=== PATIENT | female | born 1995 | race Caucasian/White ===

== ENCOUNTER 2022-01-03 06:51 | Day surgery (SDC) | payer BC ==
[2022-01-02 14:33] LABS: BASOPHILS % (AUTO) 0.8 % (0.0-5.0); EOSINOPHILS % (AUTO) 4.3 % (0.0-8.0); LYMPHOCYTES % (AUTO) 28.2 % (21.0-51.0); MEAN CORPUSCULAR HEMOGLOBIN 31.9 pg (27.0-33.0); MEAN CORPUSCULAR HGB CONC 34.5 g/dL (32.0-36.0); MEAN CORPUSCULAR VOLUME 92.4 fL (79-99); MONOCYTES % (AUTO) 7.7 % (3.0-13.0); NEUTROPHILS % (AUTO) 58.7 % (40.0-77.0); PLATELET COUNT (AUTO) 211 K/uL (130-400); RED BLOOD CELL COUNT(AUTO) 4.76 MIL/uL (4.00-5.50); RED CELL DISTRIBUTION WIDTH 12.5 % (11.0-15.5); WHITE BLOOD COUNT (AUTO) 7.5 K/uL (4.8-10.8)
[2022-01-02 14:40] VITALS: BP 114/72
[~2022-01-03] VITALS: Ht 172.7 cm; Wt 60.0 kg
[~2022-01-03 06:51] MED LIST: CEFAZOLIN SODIUM 2 GM VIAL IV SCH
[2022-01-03] MEDS ORDERED: LACTATED RINGERS 1000ML 1,000 ML IV ONE (07:08)
[2022-01-03] MEDS ORDERED: CEFAZOLIN SODIUM 1 GM VIAL ONE (07:08)
[2022-01-03 07:15] VITALS: BP 135/82
[2022-01-03] MEDS ORDERED: POLY10DR3 OD (07:23)
[2022-01-03] MEDS ORDERED: PRED5DRO25 OD (07:23)
[2022-01-03] MEDS ORDERED: MIDAZOLAM HCL 1 MG/ML 2ML VIAL ONE (07:59)
[2022-01-03] MEDS ORDERED: PROPOFOL 10 MG/ML 20ML VIAL IV ONE (08:16)
[2022-01-03] MEDS ORDERED: LIDOCAINE PF 100MG/5ML (2%) SYRINGE 5ML ONE (08:16)
[2022-01-03] MEDS ORDERED: FENTANYL CITRATE PF 50 MCG/1 ML 2ML VIAL ONE (08:17)
[2022-01-03] MEDS ORDERED: ONDANSETRON 4MG INJ ONE (08:22)
[2022-01-03] MEDS ORDERED: DEXAMETHASONE SOD PHOSPHATE 10MG/ML 1ML VIAL ONE (08:22)
[2022-01-03] MEDS ORDERED: METHYLERGONOVINE MALEATE 0.2 MG/1 ML ML ONE (08:28)
[2022-01-03] MEDS ORDERED: OXYTOCIN 10 USP UNITS/ML ONE (08:38)
[2022-01-03] MEDS ORDERED: KETOROLAC 30MG VIAL (30MG/ML) ONE (09:57)
[2022-01-03 10:10] VITALS: BP 118/79
[2022-01-03 10:25] VITALS: BP 127/77
[2022-01-03 10:40] VITALS: BP 117/73
== END 2022-01-03 10:55 | disposition home or self-care (01) ==
LOC: DAH 06:51
PROVIDERS: ATTEND Obstetrics & Gynecology
DX: O02.1 Missed abortion (principal); N85.4 Malposition of uterus; Z79.899 Other long term (current) drug therapy
CPT/HCPCS: 36415; 59820; 85025; 86850; 86900; 86901; 87635; A4215; A4221; A4222; A4223; A4351; A4663; C9803; J0690; J1100; J1885; J2001; J2210; J2250; J2405; J2590; J2704; J3010; J7120